=== PATIENT | male | born 1975 | race Hispanic/Latino ===

== ENCOUNTER 2024-05-15 01:57 | Emergency (ER) | payer SELFPAY ==
[~2024-05-15] VITALS: Ht 170.2 cm; Wt 85.3 kg
--- NOTE | 2024-05-15 02:36 | ERN ---
ED Note History of Present Illness Stated Complaint: C/O LACERATION TO FACE, ABRASIONS TO FACE AFTER FA Chief Complaint: Laceration/Avulsion Time Seen by Midlevel: 02:00 Dictation: Patient is a 49-year-old male with no past medical history who presents to the emergency department with complaints of facial lacerations after a ground level fall. Patient reports he tripped over his own sandal and fell forward injuring his face. Patient denies any LOC, nausea or vomiting, use of blood thinners. Patient denies any neck pain, chest pain, back pain, abdominal pain, extremity pain. Patient reports he had his last Tdap five months ago after he injured his hand. Past Medical History Past Medical History: No Pertinent History Surgical History: None RN Note Reviewed/Agreed w/PFSH: Yes Review of System Dictation Constitutional: Negative for fever,chills, and weight loss Eyes: Negative for injury, pain,redness, and discharge ENT: Negative for injury,pain or swelling Cardiovascular: Negative for chest pain, palpitations, and edema Respiratory: Negative for shortness of breath, cough, and wheezing, Abdomen/GI: Negative for abdominal pain, nausea, vomiting, diarrhea, and constipation Back: Negative for injury and pain : Negative for injury, bleeding and discharge MS/Extremity: Negative for injury and deformity Skin: Negative for rash, and discoloration positive for multiple facial lacerations Neuro: Negative for headache, weakness, numbness, tingling, and seizure Psych: Negative for suicide ideation, homicidal ideation, and hallucinations Initial Vital Sign VS Vital Signs Date Time Temp Pulse Resp B/P (MAP) Pulse Ox O2 Delivery O2 Flow Rate FiO2 05/15/24 02:00 97.5 102 20 136/90 Room Air Physical Exam Dictation Vital Signs reviewed General Appearance: Alert, oriented x 3, no acute distress, well developed, nourished. Head and Face: non-traumatic. Eyes: PERRL, pink conjunctivas, eyelid no trauma, anterior chamber with arcus senilis. Ears: Pinnas intact and no signs of trauma or erythema ear canals clear and no discharge TM no erythema Nose: No discharge, no bleeding. Oropharynx: Mouth normal, tongue pink. pharynx clear,no erythema, tonsils no exudates, no abscesses noted, mucous membrane moist Neck: Supple, non-tender, no thyromegaly, no masses, no JVD, no bruits Breast:Deferred Chest:No tenderness, no crepitus, no paradoxical movement, no retractions Lungs:Clear, well-ventilated, symmetric, no rales, no wheezing, no rhonchi, no stridor, good breath sounds bilaterally Heart: Regular rate, regular rhythm, no murmur, no gallops Vascular: no peripheral edema, Abdomen: Soft, positive bowel sounds, nondistended, no guarding, nontender, no rebound, no masses no hepatomegaly, no splenomegaly, no Alcala's sign, no hernias. Rectal: Deferred Genital: Deferred Neurological: Normal speech, motor function intact, sensory function intact Musculoskeletal: Neck nontender, full range of motion, back nontender, full range of motion, Extremities: nontender, full range of motion Skin: Color pink, dry, no turgor, no rash, no abrasions, no contusions. Small but1 cm laceration noted to right eyebrow, minimal active bleeding, laceration noted to upper lip, lower nose, active bleeding, small hematoma noted to left temporal area no open wounds. Lymphatic: Deferred ED Course ED Course Orders Procedure Category Date Status Time Ct Head/Brain W/O CT 05/15/24 Taken Contrast 02:15 Ct Maxillofacial W/O CT 05/15/24 Taken Contrast 02:15 Ct Cervical Spine W/O CT 05/15/24 Taken Contrast 02:15 Wound Care (Er) CPOE 05/15/24 Transmitted 02:15 Laceration Tray Set CPOE 05/15/24 Transmitted Up (Er) 03:11 Lidocaine Hcl 1% 20ml PHA 05/15/24 In Process Vial (Lidocaine Hc 03:30 Cefazolin Sodium 1 Gm PHA 05/15/24 In Process Vial (Ancef 1 Gm V 04:30 Current Medications Medications (Trade) Dose Ordered Sig/Parris Route PRN Reason Start Time Stop Time Status Last Admin Dose Admin Cefazolin Sodium (ANCEF 1 gm vial) 1 gm ONCE IVPB 05/15/24 04:30 05/25/24 04:29 Lidocaine HCl (Lidocaine HCl 1% 20ml Vial) 10 ml ONCE INJ 05/15/24 03:30 06/14/24 03:29 Vital Signs Date Time Temp Pulse Resp B/P (MAP) Pulse Ox O2 Delivery O2 Flow Rate FiO2 05/15/24 02:00 97.5 102 20 136/90 Room Air Medical Decision Making MDM Patient is a 49-year-old male with no past medical history who presents to the emergency department with complaints of facial lacerations after a ground level fall. Patient reports he tripped over his own sandal and fell forward injuring his face. Patient denies any LOC, nausea or vomiting, use of blood thinners. Patient denies any neck pain, chest pain, back pain, abdominal pain, extremity pain. Patient reports he had his last Tdap five months ago after he injured his hand. CT facial showed anterior nasal spine fracture. Overlying upper lip laceration which was repaired. CT head showed no acute intracranial bleeding, C-spine showed no acute fractures. Patient's laceration were extensively cleaned and repair. Patient tolerated well. Minimal bleeding. Patient continues neurologically intact. In no acute distress. Will be discharged to follow up with ENT and PCP. Wound care instructions given to patient. Differential diagnosis: Intracerebral hemorrhage, C-spine fracture, laceration, cellulitis Need for hospitalization: Patient does not meet criteria for hospitalization. There are no social concerns with this patient. Procedure Procedure Dictation: Time and Date Performed:[id number] INDICATION: Upper Lip laceration Location: Upper upper lip Informed consent was obtained. Pre-procedure time out was obtained. Anesthetic: 1% lidocaine Manual prep of skin and wound was done with hibiclens. Foreign Body: NO foreign bodies were identified. Length Repaired: 3 cm Suture used chromic # of simple sutures:6 Aseptic technique was used during the entire procedure. Time and Date Performed:05/15/2024 0400 INDICATION: Laceration Location: Right eyebrow Informed consent was obtained. Pre-procedure time out was obtained. Anesthetic: 1% lidocaine Manual prep of skin and wound was done with hibiclens. Foreign Body: NO foreign bodies were identified. Length Repaired: Suture used: Four nylon # of simple sutures: Three Aseptic technique was used during the entire procedure. Wound Location: face Wound's Depth, Shape: superficial Wound Explored: clean Betadine Prep?: Yes Anesthesia: 1% Lidocaine Wound Repaired With: sutures Suture Size/Type: 4:0 Number of Sutures: 3 Layer Closure?: Yes Deep Layer Suture Size/Type: 4:0, chromic Number Deep Layer Sutures: 6 Sterile Dressing Applied?: Yes DX & DISP Disposition: Discharge Departure Impression: Primary Impression: Fall Additional Impressions: Face lacerations, Nasal fracture Condition: Stable Scripts Cephalexin Monohydrate (Keflex) 500 Mg Cap 500 MG PO QID for 7 Days, #28 CAP Prov: ANNA PAULSON [employer] 05/15/24 Additional Instructions: Keep your stitches clean and dry. Do not put your stitches under water, such as in a bath, pool, or pino. This can slow healing and raise your chance of getting an infection. Avoid activities or sports that could hurt the area of your stitches for 1-2 weeks. You should call your doctor if you develop any fever, redness or swelling around the cut, or pus draining from the cut. Your sutures in your eyebrow will need to be removed in 5 days. The sutures in your upper lip will dissolve on their own You will need to follow up with ENT for nasal spine fracture. Take antibiotics as prescribed. FOLLOW-UP WITH PRIMARY CARE PROVIDER IN 1 TO 2 DAYS. TAKE MEDICATIONS DIRECTED HERE IN THE EMERGENCY ROOM. OKAY TO CONTINUE HOME MEDICATIONS UNLESS OTHERWISE DISCUSSED DURING YOUR VISIT IN THE EMERGENCY ROOM TODAY. RETURN TO YOUR NEAREST EMERGENCY ROOM IF SYMPTOMS WORSEN OR IF THERE IS NO IMPROVEMENT. CALL 911 IF YOU NEED IMMEDIATE ASSISTANCE. TAKE TYLENOL OR MOTRIN OVE [id number] NEEDED AND IF NO CONTRAINDICATIONS ARE PRESENT. INCREASE ORAL HYDRATION. A WOUND CULTURE OR URINE CULTURE WAS ORDERED HERE IN THE EMERGENCY ROOM DEPARTMENT PLEASE FOLLOW-UP WITH PRIMARY CARE PROVIDER AND ADVISE THEM TO GET REPEAT PORTS FROM OUR FACILITY. IF YOU HAD ANY MACO WRAP/SPLINTS THAT WERE APPLIED HERE, PLEASE DO NOT REMOVE THEM UNTIL YOU SEE YOUR PRIMARY CARE OR SPECIALTY. Referrals: SELF,REFERRAL (PCP) KEISHA CRAMER III, MD Time of Disposition: 04:20 I have examined patient, & reviewed all documents, & agreed W/ the Diagnosis, and Plan ANNA PAULSON [facility] May 15, 2024 02:36
--- NOTE | 2024-05-15 03:07 | NUR ---
FACIAL LACERATIONS CLEANED WITH SKIN CLEANSER, IRRIGATED WITH NS. PATIENT TOLERATED WELL
[2024-05-15] MEDS: LIDOCAINE HCL 1% 20 ML VIAL INJ SCH (03:30)
--- NOTE | 2024-05-15 03:37 | NUR ---
LIDOCAINE ADMINISTERED BY Ash PAULSON GLUING MACHINE OFFBEARER TO FACIAL LACERATIONS AND SUTURES APPLIED. PATIENT TOLERATED WELL
[2024-05-15] MEDS: ceFAZolin SODIUM 1 GM VIAL IVPB SCH (04:19)
[2024-05-15] MEDS ORDERED: CEPH500B PO (04:20)
[2024-05-15 04:32] VITALS: BP 131/85; PULSE 96; RESP 18; TEMP 98.2; O2SAT 97
--- NOTE | 2024-05-15 08:31 | HMCIMG ---
CT CERVICAL SPINE W/O CONTRAST REASON: trauma COMPARISON: None TECHNIQUE: Images are obtained from skull base to the upper thoracic spine in the axial plane. Sagittal and coronal reconstruction images were then performed. FINDINGS: There are normal appearing vertebral bodies. Alignment is unremarkable and disc interspace heights are well preserved. There is no evidence of fracture or subluxation. Soft tissues appear normal as well. IMPRESSION: Normal noncontrast CT of the cervical spine. CT was performed with one or more following dose reduction techniques: automated exposure control, adjustment of the mA and kv according to patient's size, or use of a iterative reconstruction technique.
--- NOTE | 2024-05-15 08:34 | HMCIMG ---
CT MAXILLOFACIAL W/O CONTRAST REASON: trauma COMPARISON: None TECHNIQUE: Noncontrast axial imaging was performed with bone and soft tissue window presentation. Sagittal and coronal reconstruction images were then performed. FINDINGS: There is fracture of the anterior nasal spine. There is an associated laceration. Facial bones appear otherwise intact. Nasal septum is midline. There is mild mucosal thickening in the maxillary sinuses and in the ethmoid air cells. Remaining paranasal sinuses are normally aerated. Globes and retrobulbar soft tissues appear normal. There is a 3 mm delia of high attenuation material in the subcutaneous soft tissues just above the left eye. There are no other soft tissue foreign bodies. IMPRESSION: 1. Fracture of the anterior nasal spine with an overlying laceration. 2. 3 mm metallic foreign body in subcutaneous soft tissues just above the left eye. 3. Mild mucosal thickening in the maxillary and ethmoid air cells.
--- NOTE | 2024-05-15 08:35 | HMCIMG ---
Exam: NONCONTRAST CT BRAIN REASON: trauma. COMPARISON: None. TECHNIQUE: Images are obtained from vertex to the skull base. The exam was performed without IV contrast. FINDINGS: There is normal appearing brain parenchyma. There are no focal mass lesions. There is is no evidence of intracranial hemorrhage or acute stroke. Ventricles and sulci appear normal. Posterior fossa and brainstem structures are unremarkable. Paranasal sinuses and remaining extracranial soft tissues appear normal as well. IMPRESSION: 1. Normal noncontrast CT brain. CT was performed with one or more following dose reduction techniques: automated exposure control, adjustment of the mA and kv according to patient's size, or use of a iterative reconstruction technique.
== END 2024-05-15 04:33 | disposition home or self-care (01) ==
LOC: EDH 01:57
DX: S02.2XXA Fracture of nasal bones, initial encounter for closed fracture (principal); S01.511A Laceration without foreign body of lip, initial encounter; W01.0XXA Fall on same level from slipping, tripping and stumbling without subsequent striking against object, initial encounter; Y93.89 Activity, other specified; Y92.89 Other specified places as the place of occurrence of the external cause; Y99.8 Other external cause status
CPT/HCPCS: 99285; 70450; 96374; 72125; 70486; 12011; J0690